=== PATIENT | male | born 1990 | race Caucasian/White ===

== ENCOUNTER → 2020-06-18 | Outpatient (CLI) | payer OTHER ==
[~2020-06-18] MED LIST: LORCET 5-325 M1 EACH PO; NOHOMEMEDICATIONS
== END ==
LOC: LAB 14:19 → EDSTATUS 17:02
PROVIDERS: ATTEND Student in an Organized Health Care Education/Training Program
DX: Z01.818 Encounter for other preprocedural examination (principal); Z11.59 Encounter for screening for other viral diseases

== ENCOUNTER 2020-06-23 08:03 | Day surgery (SDC) | payer OTHER ==
[~2020-06-23] VITALS: Ht 177.8 cm; Wt 104.3 kg
--- NOTE | ~2020-06-23 | O ---
[facility] [place] [address] OPERATIVE REPORT Name: EBER LANCE Room #: DEP [facility]#: [id number] Admission: 06/23/20 Attend Phys: Robert Kendall MD Discharge: 06/23/20 Date of : 88 Report #: [id number] THIS REPORT FOR: cc: JE CRENSHAW,Robert Cabrera MD ~ CC: JE Kendall DATE OF SERVICE: 06/23/2020 PREOPERATIVE DIAGNOSIS: Recurrent pilonidal infection with sinus tract. POSTOPERATIVE DIAGNOSIS: Pilonidal with sinus tract and abscess. PROCEDURES PERFORMED: Extensive pilonidal cystectomy. SURGEON: Robert Kendall MD ANESTHESIA: General anesthesia, prone position. COMPLICATIONS: None. BLOOD LOSS: 30 mL. PROCEDURE NOTE: With the patient under general anesthesia, placed in the prone position, the sacral area was prepped with ChloraPrep and draped in sterile fashion. Timeout was performed. The patient has a secondary opening superiorly, several indentations in the midline inferior to that and then a shallow area beneath inferior to the indentation. This was all excised. I probed some of the indentation. The probe would not go very far. The ellipse that was drawn was then excised. The skin was incised with a #10 knife blade and cautery was used for hemostasis. Cautery was then used for the dissection down through the subcutaneous tissue to the area just above the presacral fascia. In the deep aspect of it, there is ____ cm abscess that was found. This had a smooth wall, soft and consistent with an abscess formation. This was left alone and intact and then excised. Dissection was carried out from the patient's right side and then the left side, superiorly, down inferiorly. Irrigation was performed, hemostasis obtained with cautery. The deep subcutaneous tissue was then sutured together with 2-0 PDS ____ the presacral fascia, especially inferiorly. The further subcutaneous was brought together with 2-0 and 3-0 PDS. The deep tissue seems to be closed well. Skin was then closed with 4-0 nylon in interrupted fashion. Antibiotic ointment, [address] [facility] [address] [place] [address] OPERATIVE REPORT Name: EBER LANCE Room #: DEP [facility]#: [id number] Admission: 06/23/20 Attend Phys: Robert Kendall MD Discharge: 06/23/20 Date of : 88 Report #: [id number] was applied. The patient was then placed, rotated back in supine position, extubated. Taken to recovery room in good condition. By: [id number] Robert Kendall MD /nt
[~2020-06-23 08:03] MED LIST changes: -LORCET 5-325 M1 EACH PO
[2020-06-23 09:13] VITALS: BP 141/99
[2020-06-23] MEDS ORDERED: LORCET 5-325 M1 EACH PO (12:07)
[2020-06-23 12:27] VITALS: BP 141/99
--- NOTE | 2020-06-24 16:06 | PATH ---
[facility] [address] [place] [address] PATHOLOGY RPT PROCEDURE Name: BJORNAUDREYJAYROEBER Jennifer Room #: DEP [facility] M.R.#: [id number] Admission: 06/23/20 Date of : 88 Discharge: 06/23/20 Report #: [id number] Path Case #: [id number] [facility] Accession Number: [id number] . 01 Material submitted: . buttock - PILONIDAL SINUS TRACK ABSCESS . 01 Clinical history: . PILONIDAL CYSTECTOMY . 02 Diagnosis: Pilonidal sinus tract abscess, excision: - Marked acute and chronic inflammation along with vellus hair, consistent with pilonidal sinus tract abscess. - Skin showing reactive changes. (IUV:darren; 06/24/2020) YVONNE 06/24/2020 1327 Local . 02 Electronically signed: . Daisy Green MD, Pathologist NPI- [id number] . 01 Gross description: . The specimen is received in formalin, labeled "Eber Lance, pilonidal sinus tract abscess". Received is no ellipse of pale mares to light mares skin measuring 10.4 x 3.7 x 4.3 cm in greatest dimensions. The epidermal surface displays a circular defect measuring 0.2 x 0.2 cm, which probes to a depth/length of 3.4 cm. Sectioning reveals a linear sinus tract measuring up to 0.4 cm in diameter, displaying a slightly hemorrhagic/abscessed appearance, and with a slight amount of hair present. The specimen is submitted representatively in cassettes A1 and A2. (CAA; 06/23/2020) QAC/QAC 06/23/2020 1708 Local . 02 Pathologist provided ICD-10: L05.91 . 02 CPT . 909575 Specimen Comment: A courtesy copy of this report has been sent to [phone] Specimen Comment: Report sent to / DR CRENSHAW Performed at: [address] [facility] [place] [address] [id number] MD Alexis Venegas MD Phone: [phone] Performed at: [address] [address] PATHOLOGY RPT PROCEDURE Name: EBER LANCE Jennifer Room #: DEP [facility]#: [id number] Admission: 06/23/20 Date of : 88 Discharge: 06/23/20 Report #: [id number] Path Case #: [id number] [facility] [address], [place], [place] [id number] MD Daisy Green MD Phone: [phone]
== END 2020-06-23 12:27 | disposition home or self-care (01) ==
LOC: TBA 08:03 → OR 08:03
PROVIDERS: ATTEND Surgery
DX: L05.02 Pilonidal sinus with abscess (principal); Z98.890 Other specified postprocedural states
CPT/HCPCS: 50010; 50101; 50386; 50403; 56526; 56527; 62110; 62900; 70005